=== PATIENT | female | born 1935 | race Caucasian/White ===

== ENCOUNTER 2020-02-28 12:04 | Emergency (ER) | payer MEDICARE, MEDICAID ==
[~2020-02-28] VITALS: Ht 152.4 cm; Wt 54.0 kg
[2020-02-28 12:17] VITALS: BP 139/95
--- NOTE | 2020-02-28 14:09 | NUR ---
[facility] [employer] [facility] SUPPORT: PT TO ROOM FROM [facility]
--- NOTE | 2020-02-28 14:17 | NUR ---
PATIENT WALKED BACK FROM TRIAGE WITH CHIEF C/O POSSIBLE INFECTION FROM HEMORRHOIDS. PATIENT STATES SHE IS SUPPOSED TO HAVE SURGERY FOR HER HEMORRHOIDS, HOWEVER, PATIENT NOTICED AN AREA OF REDNESS ABOUT THE SIZE OF "A SILVER DOLLAR" IN BETWEEN HER VAGINA AND BUTTOCKS THIS MORNING THAT WAS NOT THERE A COUPLE DAYS AGO. NO SIGNS OF ACUTE DISTRESS, CONNECTED TO VITALS MACHINE, PATIENT REFUSING BP, BECAUSE "ITS TOO TIGHT." CALL LIGHT WITHIN REACH.
--- NOTE | 2020-02-28 14:24 | NUR ---
ERMD AT BEDSIDE FOR EVALUATION.
--- NOTE | 2020-02-28 14:32 | NUR ---
BREAK RN FOR PRIMARY RN NAKITA. DR. BARBOZA REMAINS AT BEDSIDE FOR EVALUATION, DISCUSSING POC WITH PT
--- NOTE | 2020-02-28 15:00 | NUR ---
REPORT AND CARE BACK TO PRIMARY RN NAKITA HARPER AT THIS TIME
== END 2020-02-28 15:11 | disposition home or self-care (01) ==
LOC: ED 14:50
DX: L30.9 Dermatitis, unspecified (principal); K64.4 Residual hemorrhoidal skin tags
CPT/HCPCS: 99281

== ENCOUNTER 2020-05-23 09:27 | Emergency (ER) | payer MEDICARE, MEDICAID ==
[~2020-05-23] VITALS: Ht 152.4 cm; Wt 52.3 kg
[2020-05-23 09:29] VITALS: BP 121/75
--- NOTE | 2020-05-23 09:34 | NUR ---
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 Unit Secretary: Florencio rocha according to her
== END 2020-05-23 10:13 | disposition home or self-care (01) ==
LOC: ED 09:50
DX: R21 Rash and other nonspecific skin eruption (principal); T38.0X5A Adverse effect of glucocorticoids and synthetic analogues, initial encounter; Y92.89 Other specified places as the place of occurrence of the external cause
CPT/HCPCS: 99281